=== PATIENT | female | born 1975 | race Caucasian/White ===

== ENCOUNTER → 2017-01-19 | Outpatient (CLI) | payer OTHER ==
[~2017-01-19] MED LIST: LORTAB 7.5-5001 TAB; SUDAFED PE
--- NOTE | ~2017-01-19 | CR181 ---
[facility] A Service of [facility] & [facility] RADIOLOGY TEXT RESULTS PATIENT: WALESKA PERKINS LOCATION: [facility] : 77 UNIT #: [id number] AGE: [address]: Oswaldo Shankar MD SEX: F ORDER DR: [id number] [address] [address] [id number] O MR#: [id number] Acc #: [id number] NAME: WALESKA PERKINS : 1975 SEX: F STUDY DATE/TIME: 01/19/2017 11:49 UNIT: [facility] ROOM: STUDY DESCRIPTION: CR Lumbar Spine 2 or 3 Views Attending Physician: Oswaldo Shankar M.D. Referring Physician: Oswaldo Shankar M.D. Ordering Physician: Oswaldo Shankar M.D. Primary Care Physician: Oswaldo Shankar M.D. MEDICAL IMAGING REPORT This report is preliminary unless electronic signature is present. EXAM Lumbar spine, 01/19/2017; [facility]. HISTORY 41-year-old female low back pain radiating into both hips. 6-7 months duration. COMPARISON None. FINDINGS AP and lateral lumbar spine views demonstrate normal lumbar alignment and curvature. Vertebral body heights and disc spaces are preserved. Posterior elements are intact. Small scattered anterior marginal osteophytes noted L4-L5 levels. Normal bone mineralization noted. IMPRESSION Negative lumbar spine, Dictated by... Robbie Pollard M.D. THIS IS AN ELECTRONICALLY VERIFIED REPORT Robbie Pollard M.D. at 01/20/2017 8:02 AM Lisa TD: 01/19/2017 19:47 JOB #: [id number] MEDICAL IMAGING REPORT Page 1 of 1
== END | disposition home or self-care (01) ==
LOC: SRAD 11:44
DX: M54.9 Dorsalgia, unspecified (principal)
CPT/HCPCS: 72100